=== PATIENT | male | born 2000 ===

== ENCOUNTER 2021-11-29 16:17 | Inpatient (IN) | payer MEDICAID, SELFPAY ==
[2021-11-29 16:17] VITALS: BP 111/75; PULSE 96; RESP 17; TEMP 37.1; O2SAT 97
[2021-11-29 16:23] VITALS: BMI 23.6
[2021-11-29] MEDS: benzocaine 20% 7 gm 1 APPLIC MUCOUS MEM (18:35)
[2021-11-29] MEDS: acetaminophen 325 mg Tablet 650 MG PO (18:35)
[2021-11-29 20:33] VITALS: BP 120/69; PULSE 67; RESP 20; TEMP 36.8; O2SAT 99
[2021-11-30 06:00] VITALS: BP 127/78; PULSE 81; RESP 16; TEMP 37; O2SAT 99
[2021-11-30] MEDS: benzocaine 20% 7 gm 1 APPLIC MUCOUS MEM ×3 (07:32→15:01)
--- NOTE | 2021-11-30 10:38 | W.PM.NPUH&PS ---
Providers/Chief Complaint Admitting Physician: Juanjose Elizabeth MD [facility] NPU History of Present Illness Philip Noble is a 21 year old male who was admitted to an outside emergency department with the following report: The patient is a 21-year-old male who presents to the Emergency Department today due to suicidal ideation.? States that has been going on for the last few days.? States that he would overdose on heroin.? He uses heroin intermittently.? He has never tried to overdose before.? He has been using increasingly high doses of drugs.? He was in the emergency room last evening for methamphetamine use.? Denies any other symptoms.? Otherwise he is normal state of health. Patient is a 21-year-old male who presents to the emergency department for virtual evaluation.? Patient reports a chief complaint of I am having suicidal thoughts .? Patient reports suicidal ideation with a plan, patient reports his plan is overdose on heroin .? Patient declines any current depression, anxiety, manic or psychosis symptoms and states I want to detox. ? Patient was recently discharged from the inpatient behavioral health at [facility] from November 18 to November 23.? Patient reports methamphetamine and heroin use, patient disclosed ethanol use to the medical team but declined alcohol use to this account underwriter.? Patient reports he is currently homeless and does not have access to weapons, he does state that he feels he cannot be safe outside the hospital.? Patient reports he has no social support.? Patient states he receives outpatient services from [facility], however, patient then declined that he receives services from [facility].? Patient requested to be admitted to inpatient behavioral health for detox and suicidal thoughts. ? Patient presents alert and oriented x4, calm, cooperative and answers questions appropriately. She was recently admitted to a different hospital for about 5 days. He said that he did okay for about 1 week and then stopped taking the medications and started using heroin again. He has been homeless for about 3 months. He has not had a job for quite some time. He said that they did not talk to him at the previous hospital about rehab. He said it has been sometime that he has been to rehab previously. He would like to go again. He wants to get off of the heroin and methamphetamine. He says that he is tired of this lifestyle and strongly considered suicide. He said he would rather commit suicide than continue with this homeless drug abusing lifestyle. He has 2 somewhat recent prescriptions for Suboxone. He says he receives that at [facility]. He says that he takes Celexa 40 mg and that has been helpful for his depression and anxiety. He says that his anxiety started when he was a teenager. He feels that it is more prominent than his depression. He says that his family became homeless when he was 15 years old. He said that his father came home from detention and started using methamphetamine in the house. The landlord kicked them out. He said that he was in state custody up until the time he was of age. He said that he has had Medicaid ever since that time. He has been using drugs fairly consistently since that time. He has not really had any significant employment during that time. He says that that is because of his addictions. Meds NPU Allergies Allergy/AdvReac Type Severity Reaction Status Date / Time No Known Allergies Allergy Verified 11/29/21 17:35 Mental Status Exam MSE Comments: This is a 21-year-old single male who appears approximately his stated age and is in no acute distress. He is pleasant and cooperative with the evaluation. He was in bed at 10:30 AM but was not asleep and went to the day room readily. He is fairly well groomed and in hospital scrubs. psychomotor activity is normal. Speech is at a regular rate and rhythm, normal volume, good articulation, not pressured. Alert, oriented X3 Attention and concentration appears to be normal. Memory is intact Mood is depressed. Affect is mildly dysphoric. Thought process is logical and goal-directed. Thought content: Denies auditory and visual hallucinations. No delusions or paranoia are noted. No current suicidal ideation. He denies homicidal ideation. Fund of knowledge is average. Insight and judgment appear to be poor. Impulse control is poor. Vitals/I&O/Wt Last Vital Signs Temp 98.6 F 11/30/21 06:00 Pulse 81 11/30/21 06:00 Resp 16 11/30/21 06:00 BP 127/78 11/30/21 06:00 Pulse Ox 99 11/30/21 06:00 Weight last 48 hrs Weight 74.843 kg A&P Assessment and plan (1) Heroin abuse: Status: Acute (2) Methamphetamine abuse: Status: Acute (3) Cannabis abuse: Status: Acute (4) Suicidal ideation: Status: Acute (5) Anxiety: Status: Acute (6) Major depressive disorder: Status: Acute Plan This is a 21-year-old male with long-term polysubstance abuse who says he is tired of that lifestyle and would rather kill himself. He is wanting rehab treatment and wants to get off of the drugs. Plan: 1. Continue current medication. Celexa 40 mg and Suboxone 4-1 mg 3 times a day. 2. Continue every 15 minute checks for safety. 3. Encourage individual, group and milieu therapies. 4. Encourage sober living treatment after discharge at the highest level of care to which he is willing to commit. 5. We will monitor for safety for himself in the community prior to discharge. Involuntary Hold Information 96 Hour Hold: 96 Hour Involuntary Admission: No Attestations NPU Medical Necessity Statement*: Inpatient hospitalization is medically necessary and the clinically appropriate intervention at this time. We will initiate medications and make changes as indicated. He will be in the hospital for over 2 midnights. Likely length of stay 4-6 days Coding Level of Care Code Acute Bookkeeper Receptionist for Andrés Stanleyd Diagnoses Heroin abuse F11.10 Methamphetamine abuse F15.10 Cannabis abuse F12.10 Suicidal ideation R45.851 Anxiety F41.9 Major depressive disorder F32.9
[2021-11-30] MEDS: citalopram 20 mg Tablet 40 MG PO (11:52)
[2021-11-30 14:00] VITALS: BP 132/79; PULSE 81; RESP 16; TEMP 37.1; O2SAT 99
--- NOTE | 2021-11-30 14:27 | PC.SOCIAL ---
Patient did not attend group.
[2021-11-30] MEDS: buprenorphine-naloxone 4-1 mg Film 1 EACH SUBLINGUAL ×2 (14:29→20:30)
--- NOTE | 2021-11-30 15:02 | PC.NURSE ---
Patient request for oragel due to tongue pain.
[2021-11-30] MEDS: acetaminophen 325 mg Tablet 650 MG PO (16:14)
--- NOTE | 2021-11-30 16:15 | PC.NURSE ---
Patient has c/o right tongue pain. Given tylenol 650 mg po for this.
[2021-11-30 21:20] VITALS: BP 105/67; PULSE 64; RESP 17; TEMP 36.7; O2SAT 98
[2021-12-01 06:00] VITALS: BP 126/77; PULSE 64; RESP 19; TEMP 36.4; O2SAT 96
[2021-12-01] MEDS: buprenorphine-naloxone 4-1 mg Film 1 EACH SUBLINGUAL ×3 (07:44→21:31)
[2021-12-01] MEDS: citalopram 20 mg Tablet 40 MG PO (07:44)
--- NOTE | 2021-12-01 10:34 | W.PM.NPUPNS ---
Subjective NPU Subjective: He said that he is doing relatively well. He was in bed at 10 AM. He has not been doing much besides eating and sleeping. Denies suicidal ideation but the would change if released, homeless and facing his addiciton and legal issues. Still He continues to feel that he is needing rehabilitation. child and family services worker is working on finding a residential treatment program for him. Mental Status Exam MSE Comments: This is a 21-year-old single male who appears approximately his stated age and is in no acute distress. He is pleasant and cooperative with the evaluation. He was in bed at 2 PM but not asleep. He is fairly well groomed and in hospital scrubs. psychomotor activity is normal. Speech is at a regular rate and rhythm, normal volume, good articulation, not pressured. Alert, oriented X3 Attention and concentration appears to be normal. Memory is intact Mood is depressed. Affect is mildly dysphoric. Thought process is logical and goal-directed. Thought content: Denies auditory and visual hallucinations. No delusions or paranoia are noted. No current suicidal ideation. He denies homicidal ideation. Fund of knowledge is average. Insight and judgment appear to be poor. Impulse control is poor. Cognition: Patient Appearance: Disheveled/Poor Hygiene Level of Consciousness: Appropriate Patient Orientation (long list): Person, Place, Time, Name, Age and Birthday Comprehension Ability: No Impairment Hallucination Type: None Delusion Description: Not Present Thought Process: Appropriate Affect: Affect Description: Calm, Depressed and Guarded Behavior: Patient Behavior: Appropriate Speech Pattern: Appropriate Vitals/I&O/Wt Last Vital Signs Temp 97.9 F 12/10/21 13:20 Pulse 72 12/10/21 13:20 Resp 19 H 12/10/21 13:20 BP 123/72 12/10/21 13:20 Pulse Ox 96 12/10/21 13:20 Data NPU : 12/07/21 08:40 12/07/21 08:40 A&P Assessment and plan (1) Major depressive disorder: Status: Acute (2) Anxiety: Status: Acute (3) Suicidal ideation: Status: Resolved (4) Cannabis abuse: Status: Acute (5) Methamphetamine abuse: Status: Acute (6) Heroin abuse: Status: Acute Plan This is a 21-year-old male with long-term polysubstance abuse who says he is tired of that lifestyle and would rather kill himself. He is wanting rehab treatment and wants to get off of the drugs. Plan: 1. Continue current medication. Celexa 40 mg and Suboxone 4-1 mg 3 times a day. 2. Continue every 15 minute checks for safety. 3. Encourage individual, group and milieu therapies. 4. Encourage sober living treatment after discharge at the highest level of care to which he is willing to commit. 5. We will monitor for safety for himself in the community prior to discharge. Involuntary Hold Information 96 Hour Hold: 96 Hour Involuntary Admission: No Attestations NPU Medical Necessity Statement*: Inpatient hospitalization is medically necessary and the clinically appropriate intervention at this time. We will initiate medications and make changes as indicated. Coding Level of Care Code Acute Animal Laboratory Technician for Andrés Schuster Diagnoses Major depressive disorder F32.9 Anxiety F41.9 Suicidal ideation R45.851 Cannabis abuse F12.10 Methamphetamine abuse F15.10 Heroin abuse F11.10
[2021-12-01] MEDS: diphenhydrAMINE 50 mg/mL SDV 1mL IM (12:06)
--- NOTE | 2021-12-01 12:08 | PC.NURSE ---
pt c/o itchy rash on LT hand, pt applied lotion and IM benadryl to relieve itching, pt instructed to stop itching hands, pt verb understanding and went to lay in bed to relax
[2021-12-01 14:00] VITALS: BP 120/70; PULSE 53; RESP 16; TEMP 36.3; O2SAT 96
[2021-12-01 20:26] VITALS: BP 126/81; PULSE 83; RESP 17; TEMP 36.4; O2SAT 94
[2021-12-02 06:00] VITALS: BP 122/79; PULSE 75; RESP 18; TEMP 36.9; O2SAT 96
[2021-12-02] MEDS: buprenorphine-naloxone 4-1 mg Film 1 EACH SUBLINGUAL ×3 (08:49→20:50)
[2021-12-02] MEDS: citalopram 20 mg Tablet 40 MG PO (08:49)
[2021-12-02 14:00] VITALS: BP 127/75; PULSE 67; RESP 20; TEMP 36.7; O2SAT 97
--- NOTE | 2021-12-02 15:14 | W.PM.NPUPNS ---
Subjective NPU Subjective: He said that he is doing relatively well. He was in bed at 3 PM. He continues to feel that he is needing rehabilitation. Mental Status Exam MSE Comments: This is a 21-year-old single male who appears approximately his stated age and is in no acute distress. He is pleasant and cooperative with the evaluation. He was in bed at 3 PM but not asleep. He is fairly well groomed and in hospital scrubs. psychomotor activity is normal. Speech is at a regular rate and rhythm, normal volume, good articulation, not pressured. Alert, oriented X3 Attention and concentration appears to be normal. Memory is intact Mood is depressed. Affect is mildly dysphoric. Thought process is logical and goal-directed. Thought content: Denies auditory and visual hallucinations. No delusions or paranoia are noted. No current suicidal ideation. He denies homicidal ideation. Fund of knowledge is average. Insight and judgment appear to be poor. Impulse control is poor. Cognition: Patient Appearance: Appropriate Patient Orientation (long list): Person, Place, Name and Age Comprehension Ability: No Impairment Hallucination Type: None Delusion Description: Not Present Thought Process: Appropriate Affect: Affect Description: Appropriate Behavior: Patient Behavior: Appropriate Speech Pattern: Appropriate Vitals/I&O/Wt Last Vital Signs Temp 98.1 F 12/02/21 14:00 Pulse 67 12/02/21 14:00 Resp 20 H 12/02/21 14:00 BP 127/75 12/02/21 14:00 Pulse Ox 97 12/02/21 14:00 A&P Assessment and plan (1) Heroin abuse: Status: Acute (2) Methamphetamine abuse: Status: Acute (3) Cannabis abuse: Status: Acute (4) Suicidal ideation: Status: Acute (5) Anxiety: Status: Acute (6) Major depressive disorder: Status: Acute Plan This is a 21-year-old male with long-term polysubstance abuse who says he is tired of that lifestyle and would rather kill himself. He is wanting rehab treatment and wants to get off of the drugs. Plan: 1. Continue current medication. Celexa 40 mg and Suboxone 4-1 mg 3 times a day. 2. Continue every 15 minute checks for safety. 3. Encourage individual, group and milieu therapies. 4. Encourage sober living treatment after discharge at the highest level of care to which he is willing to commit. 5. We will monitor for safety for himself in the community prior to discharge. Involuntary Hold Information 96 Hour Hold: 96 Hour Involuntary Admission: No Attestations NPU Medical Necessity Statement*: Inpatient hospitalization is medically necessary and the clinically appropriate intervention at this time. We will initiate medications and make changes as indicated. Coding Level of Care Code Acute Tennis Racket Repairer for [facility] Fwd Diagnoses Heroin abuse F11.10 Methamphetamine abuse F15.10 Cannabis abuse F12.10 Suicidal ideation R45.851 Anxiety F41.9 Major depressive disorder F32.9
[2021-12-02] MEDS: diphenhydrAMINE 50 mg/mL SDV 1mL IM (16:01)
[2021-12-02] MEDS: nystatin 100,000 unit/mL UDC 5 mL 500000 UNIT PO ×2 (17:21→20:51)
[2021-12-02 21:13] VITALS: BP 119/17; PULSE 82; RESP 16; TEMP 36.6; O2SAT 96
[2021-12-03 06:00] VITALS: BP 114/73; PULSE 73; RESP 17; TEMP 36.9; O2SAT 96
[2021-12-03] MEDS: citalopram 20 mg Tablet 40 MG PO (08:36)
[2021-12-03] MEDS: nystatin 100,000 unit/mL UDC 5 mL 500000 UNIT PO ×3 (08:36→20:13)
[2021-12-03] MEDS: OLANZapine 5 mg ODT PO (08:36)
[2021-12-03] MEDS: buprenorphine-naloxone 4-1 mg Film 1 EACH SUBLINGUAL ×3 (08:36→20:13)
--- NOTE | 2021-12-03 11:16 | PC.NURSE ---
0836 Pt experiencing anxiety and tearful administered 5mg zyprexa zydis.
--- NOTE | 2021-12-03 13:53 | P.NPUPN_ITS ---
Subjective NPU Subjective: He said that he is doing relatively well. He was in bed at 2 PM. He continues to feel that he is needing rehabilitation. opinion polls survey worker is working on finding a residential treatment program for him. Mental Status Exam MSE Comments: This is a 21-year-old single male who appears approximately his stated age and is in no acute distress. He is pleasant and cooperative with the evaluation. He was in bed at 2 PM but not asleep. He is fairly well groomed and in hospital scrubs. psychomotor activity is normal. Speech is at a regular rate and rhythm, normal volume, good articulation, not pressured. Alert, oriented X3 Attention and concentration appears to be normal. Memory is intact Mood is depressed. Affect is mildly dysphoric. Thought process is logical and goal-directed. Thought content: Denies auditory and visual hallucinations. No delusions or paranoia are noted. No current suicidal ideation. He denies homicidal ideation. Fund of knowledge is average. Insight and judgment appear to be poor. Impulse control is poor. Cognition: Patient Appearance: Appropriate Patient Orientation (long list): Person, Place, Time, Name, Month and Year Comprehension Ability: No Impairment Hallucination Type: None Delusion Description: Not Present Thought Process: Appropriate Affect: Affect Description: Anxious Behavior: Patient Behavior: Appropriate Speech Pattern: Appropriate and Clear Vitals/I&O/Wt Last Vital Signs Temp 98.5 F 12/03/21 06:00 Pulse 73 12/03/21 06:00 Resp 17 12/03/21 06:00 BP 114/73 12/03/21 06:00 Pulse Ox 96 12/03/21 06:00 A&P Assessment and plan (1) Heroin abuse: Status: Acute (2) Methamphetamine abuse: Status: Acute (3) Cannabis abuse: Status: Acute (4) Suicidal ideation: Status: Acute (5) Anxiety: Status: Acute (6) Major depressive disorder: Status: Acute Plan This is a 21-year-old male with long-term polysubstance abuse who says he is tired of that lifestyle and would rather kill himself. He is wanting rehab treatment and wants to get off of the drugs. Plan: 1. Continue current medication. Celexa 40 mg and Suboxone 4-1 mg 3 times a day. 2. Continue every 15 minute checks for safety. 3. Encourage individual, group and milieu therapies. 4. Encourage sober living treatment after discharge at the highest level of care to which he is willing to commit. 5. We will monitor for safety for himself in the community prior to discharge. Involuntary Hold Information 96 Hour Hold: 96 Hour Involuntary Admission: No Attestations NPU Medical Necessity Statement*: Inpatient hospitalization is medically necessary and the clinically appropriate intervention at this time. We will initiate medications and make changes as indicated. Coding Level of Care Code Acute Terrazzo Worker Helper for Andrés Fwd Diagnoses Heroin abuse F11.10 Methamphetamine abuse F15.10 Cannabis abuse F12.10 Suicidal ideation R45.851 Anxiety F41.9 Major depressive disorder F32.9
[2021-12-03 14:00] VITALS: BP 150/82; PULSE 87; RESP 18; TEMP 36.4; O2SAT 97
[2021-12-03 21:27] VITALS: BP 112/68; PULSE 78; RESP 16; O2SAT 96
[2021-12-03 21:44] LABS: Rapid Strep A Test Negative (Negative)
--- NOTE | 2021-12-03 22:30 | PC.NURSE ---
PT STAYS MOSTLY TO SELF. DOES ENDORSE CONTINUED SI BUT DENIES ANY PLAN OR INTENT BUT HAS INTRUSIVE THOUGHTS. CONTRACTS FOR SAFETY WITH STAFF. HAS APPROPRIATE INTERACTION WITH OTHERS WHEN APPROACHED. CONTINUES TO ENDORSE HAVING A SORE THROAT AND STATES THAT THIS IS NOT HELPING HIM FEEL BETTER. NOTIFIED OF CONTINUED WHITENESS NOTED TO THROAT AND THAT PT HAS DEVELOPED A COUGH. NEW ORDER FOR STREP TEST. TEST IS NEGATIVE. STAFF CONTINUING TO MONITOR PT.
[2021-12-04 06:00] VITALS: BP 98/57; PULSE 76; RESP 15; O2SAT 95
[2021-12-04] MEDS: citalopram 20 mg Tablet 40 MG PO (08:21)
[2021-12-04] MEDS: buprenorphine-naloxone 4-1 mg Film 1 EACH SUBLINGUAL ×3 (08:21→20:16)
[2021-12-04] MEDS: acetaminophen 325 mg Tablet 650 MG PO ×2 (08:21→20:16)
[2021-12-04] MEDS: nystatin 100,000 unit/mL UDC 5 mL 500000 UNIT PO ×2 (08:21→14:26)
[2021-12-04 09:41] LABS: Basophils # 0.1 10^3/uL (0.0-0.1); Basophils % 0.4 %; Eosinophils # 0.9 10^3/uL (0.0-0.8); Eosinophils % 6.5 %; Hematocrit 45.5 % (42.0-52.0); Hemoglobin 15.5 g/dL (11.7-16.6); Lymphocytes # 2.3 10^3/uL (0.8-4.8); Lymphocytes % 16.5 %; Mean Corpuscular HGB Conc 34.1 g/dL (30.0-36.0); Mean Corpuscular Hemoglobin 29.5 pg (28.0-34.0); Mean Corpuscular Volume 86.5 fl (80-94); Mean Platelet Volume 9.9 fL (7.4-10.4); Monocytes % 14.7 %; Neutrophils # 8.38 10^3/uL (1.8-7.7); Neutrophils % 61.6 %; Nucleated Red Blood Cells % 0 %; Platelet Count 302 10^3/cmm (130-400); Red Blood Count 5.26 10^6/uL (4.1-5.3); Red Cell Distribution Width 12.6 % (12.1-15.1); White Blood Count 13.6 10^3/uL (4.0-10.0)
[2021-12-04 09:55] LABS: Anion Gap 15.3 (5-19); Blood Urea Nitrogen 16 mg/dL (6-20); C Reactive Protein 33.4 mg/L (0.0-4.9); Calcium 9.4 mg/dL (8.5-10.5); Carbon Dioxide 25 mmol/L (22-29); Chloride 97 mmol/L (98-107); Glucose 102 mg/dL (65-115); Osmolality Calculated 277 mOsm/kg (285-295); Potassium 4.3 mmol/L (3.5-5.1); Sodium 133 mmol/L (136-145)
[2021-12-04 10:04] VITALS: BP 109/59; PULSE 100; RESP 18; TEMP 36.9; O2SAT 98
--- NOTE | 2021-12-04 10:05 | P.NPUPN_ITS ---
Subjective NPU Subjective: He is still hopeful about the [facility] treatment program. He called them again this morning and they did not answer. He will try this afternoon. He continues to have some depression and some episodic suicidal ideation. He has a sore throat but no fever. White count is elevated. Will have hospitalist come and see him for that. Mental Status Exam MSE Comments: This is a 21-year-old single male who appears approximately his stated age and is in no acute distress. He is pleasant and cooperative with the evaluation. He was in bed at 10 AM but not asleep. He is fairly well groomed and in hospital scrubs. psychomotor activity is normal. Speech is at a regular rate and rhythm, normal volume, good articulation, not pressured. Alert, oriented X3 Attention and concentration appears to be normal. Memory is intact Mood is depressed. Affect is mildly dysphoric. Thought process is logical and goal-directed. Thought content: Denies auditory and visual hallucinations. No delusions or paranoia are noted. Episodic suicidal ideation. He denies homicidal ideation. Fund of knowledge is average. Insight and judgment appear to be poor. Impulse control is poor. Cognition: Patient Appearance: Disheveled/Poor Hygiene Patient Orientation (long list): Person, Place, Time, Name, Birthday, Month and Year Comprehension Ability: No Impairment Hallucination Type: None Delusion Description: Not Present Thought Process: Appropriate Affect: Affect Description: Roosevelt Behavior: Patient Behavior: Somatic and Withdrawn Speech Pattern: Appropriate and Clear Vitals/I&O/Wt Last Vital Signs Temp 97.6 F 12/03/21 14:00 Pulse 76 12/04/21 06:00 Resp 15 12/04/21 06:00 BP 98/57 12/04/21 06:00 Pulse Ox 95 12/04/21 06:00 Data NPU : 12/04/21 09:27 12/04/21 09:27 A&P Assessment and plan (1) Heroin abuse: Status: Acute (2) Methamphetamine abuse: Status: Acute (3) Cannabis abuse: Status: Acute (4) Suicidal ideation: Status: Acute (5) Anxiety: Status: Acute (6) Major depressive disorder: Status: Acute Plan This is a 21-year-old male with long-term polysubstance abuse who says he is tired of that lifestyle and would rather kill himself. He is wanting rehab treatment and wants to get off of the drugs. Plan: 1. Continue current medication. Celexa 40 mg and Suboxone 4-1 mg 3 times a day. 2. Continue every 15 minute checks for safety. 3. Encourage individual, group and milieu therapies. 4. Encourage sober living treatment after discharge at the highest level of care to which he is willing to commit. 5. We will monitor for safety for himself in the community prior to discharge. Involuntary Hold Information 96 Hour Hold: 96 Hour Involuntary Admission: No Attestations NPU Medical Necessity Statement*: Inpatient hospitalization is medically necessary and the clinically appropriate intervention at this time. We will initiate medications and make changes as indicated. Coding Level of Care Code Acute Combine Mechanic for Andrés Schuster Diagnoses Heroin abuse F11.10 Methamphetamine abuse F15.10 Cannabis abuse F12.10 Suicidal ideation R45.851 Anxiety F41.9 Major depressive disorder F32.9
[2021-12-04 14:00] VITALS: BP 133/70; PULSE 60; RESP 18; TEMP 36.6; O2SAT 98
--- NOTE | 2021-12-04 14:52 | XRR_ITS ---
PROCEDURE INFORMATION: Exam: XR Chest Exam date and time: 12/04/2021 5:57 PM Age: 21 years old Clinical indication: Abnormal findings; Abnormal diagnostic tests; Abnormal ekg; Additional info: Leukocytosis TECHNIQUE: Imaging protocol: XR of the chest. Views: 1 view. COMPARISON: No relevant prior studies available. FINDINGS: Lungs: Unremarkable. No consolidation. Pleural spaces: Unremarkable. No pleural effusion. No pneumothorax. Heart/Mediastinum: Unremarkable. No cardiomegaly. Bones/joints: Unremarkable. XR/XR chest 1V portable [id number] IMPRESSION: No acute findings.
--- NOTE | 2021-12-04 14:55 | P.CONIM_ITS ---
Providers/Reason For Consult Consulting Physician/Specialty*: Hospitalist Reason for Consult*: Rash, runny nose, sore throat, leukoctosis Requesting Physician: Psychiatry Attending Physician: Juanjose Elizabeth MD History of Present Illness History of Present Illness Pleasant 21-year-old polysubstance use disorder, IVDU, untreated hepatitis C, smoking addiction, homelessness, depression and suicidal ideation and treated on neuropsychiatric unit has developed a rash, sore throat, runny nose, with finding of leukocytosis with eosinophilia, monocytosis, neutrophilia, he is afebrile, perhaps some dry cough. Denies shortness of breath, phlegm production. Denies headache, nausea vomiting or diarrhea. Rash is maculopapular, pruritic, on medial right forearm, elbows, knees. He does not remember having this rash before coming to the hospital. He does not take any medications at home. He is not aware of having any medication or other allergies. Is not aware of any recent tick bites. Rapid strep negative. Review of Systems Const: Denies: fever(s), chills, body aches or malaise Eyes: Denies: change in vision, eye discomfort or eye redness ENMT: Reports: throat pain and nasal discharge; Denies: oral sores or ear or mastoid pain Card: Denies: chest pain, edema, pre-syncope or dyspnea on exertion Resp: Reports: non-productive cough (rare, mild); Denies: dyspnea, productive cough, change in phlegm color or hemoptysis GI: Denies: abdominal pain, nausea, vomiting, diarrhea, constipation, hematochezia or melena : Denies: flank pain, difficulty urinating, urinary frequency or hematuria Musc: Denies: back pain, joint swelling or joint redness Skin/Breast: Reports: rash and pruritus; Denies: new lesions Neuro: Denies: headache(s), numbness in extremities, weakness in extremities, dizziness, confusion or seizure-like activity Endo: Denies: polyuria or polydipsia Zach/Lymph: Denies: easy bleeding or tender lymph nodes All/Imm: Denies: urticaria or tongue swelling Medications/Allergies Home Medications Medication Instructions Recorded Confirmed Last Taken Type No Known Home Medications 11/30/21 11/30/21 Unknown History Allergies Allergy/AdvReac Type Severity Reaction Status Date / Time No Known Allergies Allergy Verified 11/29/21 17:35 Current Medications Generic Name Dose Route Start Last Admin Trade Name Freq PRN Reason Stop Dose Admin Acetaminophen 650 mg 11/29/21 16:17 12/04/21 08:21 Acetaminophen 325 Mg Tablet PO 650 mg Q4H PRN Administration MILD PAIN Benzocaine 1 applic 11/29/21 16:24 11/30/21 15:01 Benzocaine 20% 7 Gm MUCOUS MEM 1 applic PRN PRN Administration PAIN Buprenorphine/Naloxone 1 each 11/30/21 15:00 12/04/21 14:26 Buprenorphine-Naloxone 4-1 Mg Film SUBLINGUAL 1 each TID MAYLIN Administration Citalopram Hydrobromide 40 mg 11/30/21 10:45 12/04/21 08:21 Citalopram 20 Mg Tablet PO 40 mg DAILY MAYLIN Administration Diphenhydramine HCl 50 mg 11/29/21 16:17 12/01/21 12:06 Diphenhydramine 50 Mg/Ml Sdv 1ml IM 50 mg ONCE PRN Administration Severe Extrapyramidal Symptoms Diphenhydramine HCl 50 mg 11/29/21 16:17 12/02/21 16:01 Diphenhydramine 50 Mg/Ml Sdv 1ml IM 50 mg Q4H PRN Administration Severe Aggression Nystatin 500,000 unit 12/02/21 17:00 12/04/21 14:26 Nystatin 100,000 Unit/Ml Udc 5 Ml PO 12/07/21 23:59 500,000 unit QID MAYLIN Administration Olanzapine 5 mg 11/29/21 16:17 12/03/21 08:36 Olanzapine 5 Mg Odt PO 5 mg Q4H PRN Administration Agitation/Psychosis PFSH Acute PFSH: Medical History HCV (hepatitis C virus) Homelessness IVDU (intravenous drug user) Polysubstance (excluding opioids) dependence Smoking addiction Surgical History (Updated 12/04/21 @ 15:19 by Kamar Jo MD) No significant past surgical history Family History (Updated 12/04/21 @ 15:20 by Kamar Jo MD) Other No significant family history Social History (Updated 12/04/21 @ 15:21 by Kamar Jo MD) Smoking and tobacco status: current every day smoker Alcohol intake: never Substance/Drug Use: current Substance/Drug use type: Heroin, IV Drugs and Methamphetamine Lives independently: Yes Housing: Homeless Marital status: Single Vitals/I&O/Wt Last Vital Signs Temp 98.5 F 12/04/21 10:04 Pulse 100 12/04/21 10:04 Resp 18 12/04/21 10:04 BP 109/59 12/04/21 10:04 Pulse Ox 98 12/04/21 10:04 Physical Exam Const: COMMON NORMALS: alert GENERAL APPEARANCE: cooperative ORIENTATION/CONSCIOUSNESS: Yes awake HENMT: COMMON NORMALS: normocephalic, EAC's normal, Normal external nose present and moist oral mucous membranes HEAD & SCALP: normocephalic NOSE: Normal external nose present EXTERNAL AUDITORY CANAL: EAC's normal Neck/C-Spine: COMMON NORMALS: no meningeal signs Chest: CHEST: Yes Symmetrical chest wall rise Resp: COMMON NORMALS: clear to auscultation bilaterally AUSCULTATION: clear to auscultation bilaterally Cardio: COMMON NORMALS: regular rate, regular rhythm and No murmurs present (Cardio) RATE: regular rate RHYTHM: regular rhythm GI: COMMON NORMALS: Normal to inspection, nondistended, normoactive bowel sounds present, Soft to palpation and non-tender PALPATION: Yes Soft to palpation Extremity: COMMON NORMALS: no pedal edema Neuro: COMMON NORMALS: moves all extremities SENSORIUM/ORIENTATION: Yes alert MENINGEAL SIGNS: Yes no meningeal signs Psych: COMMON NORMALS: mental status grossly normal Skin: COMMON NORMALS: no wounds RASHES: rashes noted (maculopapular L med forearm, elbows, knees, no vesicles, weeping) Data : 12/04/21 09:27 12/04/21 09:27 A&P Assessment and plan (1) Maculopapular rash: Maculopapular rash, with warm, elbows, knees. Pruritic. Does not remember it before hospitalization. No vesicles. No rash on face/head/chest/back/abdomen. With eosinophilia. Possible drug reaction with eosinophilia. Stop nystatin. Has Benadryl, Atarax as needed for symptoms. Check Monospot. Rapid strep negative. Distribution and rash not suggestive of RMSF, but will check tick panel. Status: Acute (2) Eosinophilia: As above. Homeless. Also check ova and parasites in stool. Status: Acute (3) Leukocytosis: As above. Suspect reaction as above. Some mild rare intermittent dry cough, possibly smokers but additionally assess with chest x-ray. With history of IVDU, assess blood culture. Status: Acute (4) Pharyngitis: Rapid strep negative. Some enlargement of tonsils bilaterally. No exudates. No significant erythema. Check Monospot. Status: Acute (5) IVDU (intravenous drug user): Blood culture. Known history of hepatitis C. As discussed with him we will check paraspinal, HIV. Check GC panel. Status: Acute (6) Polysubstance (excluding opioids) dependence: As per psychiatry. Status: Acute (7) Smoking addiction: Encourage cessation. Nicotine replacement Status: Acute (8) Homelessness: Case management on the case. Needs also PCP. Status: Acute (9) HCV (hepatitis C virus): Discussed with him will need to seek treatment once condition stable to avoid risk of progression to cirrhosis, liver cancer. Status: Acute (10) Suicidal ideation: Per psychiatry. Status: Acute (11) Major depressive disorder: As per psychiatry. Status: Acute Consult Attestations Medical Necessity Statement: Continue admission for assessment management of depression, suicidal ideation. Assessment of rash, leukocytosis. Coding Level of Care Code Acute Verification Manager for [facility] Fwd Exam Comprehensive Diagnoses Maculopapular rash R21 Eosinophilia D72.10 Leukocytosis D72.829 Pharyngitis J02.9 IVDU (intravenous drug user) F19.90 Polysubstance (excluding opioids) dependence F19.20 Smoking addiction F17.200 Homelessness Z59.00 HCV (hepatitis C virus) B19.20 Suicidal ideation R45.851 Major depressive disorder F32.9
[2021-12-04 15:15] LABS: Monoscreen Negative (Negative)
[2021-12-04 15:49] LABS: Hepatitis A Antibody IgM Non-Reactive (Nonreactive); Hepatitis B Core IgM Non-Reactive (Nonreactive); Hepatitis B Surface Antigen Non-Reactive (Nonreactive); Hepatitis C Virus Antibody Reactive (Nonreactive)
[2021-12-04 15:54] LABS: HIV 1 & 2 Antibody Non-Reactive (Non-Reactiv); HIV 1 & 2 Antigen Non-Reactive (Non-Reactiv)
[2021-12-04] MEDS: haloperidol 5 mg Tablet PO (16:17)
[2021-12-04] MEDS: ondansetron 4 MG Tablet PO (20:16)
[2021-12-04 22:00] VITALS: BP 142/66; PULSE 82; RESP 16; TEMP 37.7; O2SAT 99
[2021-12-05 06:00] VITALS: BP 128/64; PULSE 80; RESP 18; TEMP 37.6; O2SAT 92; BMI 22.8
[2021-12-05 07:35] LABS: SARS Covid-2 Antigen Negative (Negative)
--- NOTE | 2021-12-05 08:00 | P.NPUPN_ITS ---
Subjective NPU Subjective: He is still feeling bad physically. He has a sore throat and general malaise. Evaluation thus far has not revealed a cause. We will try some ibuprofen. Still looking for a rehab facility. Mental Status Exam MSE Comments: This is a 21-year-old single male who appears approximately his stated age and is in no acute distress. He is pleasant and cooperative with the evaluation. He is sitting up in bed at 8 AM but. He is fairly well groomed and in hospital scrubs. psychomotor activity is normal. Speech is at a regular rate and rhythm, normal volume, good articulation, not pressured. Alert, oriented X3 Attention and concentration appears to be normal. Memory is intact Mood is depressed. Affect is moderately dysphoric. Thought process is logical and goal-directed. Thought content: Denies auditory and visual hallucinations. No delusions or paranoia are noted. Episodic suicidal ideation. He denies homicidal ideation. Fund of knowledge is average. Insight and judgment appear to be poor. Impulse control is poor. Cognition: Patient Appearance: Disheveled/Poor Hygiene Patient Orientation (long list): Person, Place, Time, Name, Birthday, Month and Year Comprehension Ability: No Impairment Hallucination Type: None Delusion Description: Not Present Thought Process: Appropriate Affect: Affect Description: Calm Behavior: Patient Behavior: Appropriate Speech Pattern: Appropriate Vitals/I&O/Wt Last Vital Signs Temp 99.6 F 12/05/21 06:00 Pulse 80 12/05/21 06:00 Resp 18 12/05/21 06:00 BP 128/64 12/05/21 06:00 Pulse Ox 92 12/05/21 06:00 Weight last 48 hrs Weight 72.121 kg Weight 72.121 kg Data NPU : 12/04/21 09:27 12/04/21 09:27 Micro: Microbiology 12/04/21 15:42 Blood Culture - Preliminary Blood SPECIMEN COLLECTED 12/04/21 15:36 Blood Culture - Preliminary Blood SPECIMEN COLLECTED Microbiology 12/04/21 15:42 Blood Blood Culture - Preliminary SPECIMEN COLLECTED 12/04/21 15:36 Blood Blood Culture - Preliminary SPECIMEN COLLECTED A&P Assessment and plan (1) Heroin abuse: Status: Acute (2) Methamphetamine abuse: Status: Acute (3) Cannabis abuse: Status: Acute (4) Suicidal ideation: Status: Acute (5) Anxiety: Status: Acute (6) Major depressive disorder: Status: Acute Plan This is a 21-year-old male with long-term polysubstance abuse who says he is tired of that lifestyle and would rather kill himself. He is wanting rehab treatment and wants to get off of the drugs. Plan: 1. Continue current medication. Celexa 40 mg and Suboxone 4-1 mg 3 times a day. 2. Continue every 15 minute checks for safety. 3. Encourage individual, group and milieu therapies. 4. Encourage sober living treatment after discharge at the highest level of care to which he is willing to commit. 5. We will monitor for safety for himself in the community prior to discharge. Involuntary Hold Information 96 Hour Hold: 96 Hour Involuntary Admission: No Attestations NPU Medical Necessity Statement*: Inpatient hospitalization is medically necessary and the clinically appropriate intervention at this time. We will initiate medications and make changes as indicated. Coding Level of Care Code Acute Personal Banking Advisor for [facility] Diagnoses Heroin abuse F11.10 Methamphetamine abuse F15.10 Cannabis abuse F12.10 Suicidal ideation R45.851 Anxiety F41.9 Major depressive disorder F32.9
[2021-12-05] MEDS: buprenorphine-naloxone 4-1 mg Film 1 EACH SUBLINGUAL ×3 (09:09→20:57)
[2021-12-05] MEDS: citalopram 20 mg Tablet 40 MG PO (09:09)
[2021-12-05] MEDS: ibuprofen 800 mg tablet PO (09:09)
[2021-12-05 09:24] LABS: Basophils # 0.1 10^3/uL (0.0-0.1); Basophils % 0.4 %; Eosinophils # 0.5 10^3/uL (0.0-0.8); Eosinophils % 3.6 %; Hematocrit 40.4 % (42.0-52.0); Hemoglobin 13.8 g/dL (11.7-16.6); Lymphocytes # 1.7 10^3/uL (0.8-4.8); Lymphocytes % 12.1 %; Mean Corpuscular HGB Conc 34.2 g/dL (30.0-36.0); Mean Corpuscular Hemoglobin 29.8 pg (28.0-34.0); Mean Corpuscular Volume 87.3 fl (80-94); Monocytes # 1.9 10^3/uL (0.2-0.9); Monocytes % 13.5 %; Neutrophils # 9.76 10^3/uL (1.8-7.7); Nucleated Red Blood Cells % 0 %; Platelet Count 287 10^3/cmm (130-400); Red Blood Count 4.63 10^6/uL (4.1-5.3); Red Cell Distribution Width 12.5 % (12.1-15.1); White Blood Count 13.9 10^3/uL (4.0-10.0)
[2021-12-05 09:41] LABS: Alanine Aminotransferase 73 U/L (0-41); Albumin Level 3.3 g/dL (3.5-5.2); Alkaline Phosphatase 71 IU/L (40-130); Anion Gap 13.5 (5-19); Aspartate Amino Transferase 46 U/L (0-40); Blood Urea Nitrogen 14 mg/dL (6-20); Carbon Dioxide 27 mmol/L (22-29); Chloride 96 mmol/L (98-107); Globulin 3.5 g/dL (1.3-4.6); Glucose 107 mg/dL (65-115); Osmolality Calculated 275 mOsm/kg (285-295); Potassium 4.5 mmol/L (3.5-5.1); Sodium 132 mmol/L (136-145); Total Bilirubin 0.2 mg/dL (0.15-1.2); Total Protein 6.8 g/dL (6.6-8.7)
[2021-12-05 13:43] VITALS: BP 113/63; PULSE 64; RESP 17; TEMP 36.8; O2SAT 93
--- NOTE | 2021-12-05 15:28 | PM.PN ---
Subjective Subjective: Having sore throat. Rash is resolving. Vitals/I&O/Wt Last Vital Signs Temp 98.2 F 12/05/21 13:43 Pulse 64 12/05/21 13:43 Resp 17 12/05/21 13:43 BP 113/63 12/05/21 13:43 Pulse Ox 93 12/05/21 13:43 Weight last 48 hrs Weight 72.121 kg Weight 72.121 kg Physical Exam Const: COMMON NORMALS: alert GENERAL APPEARANCE: cooperative ORIENTATION/CONSCIOUSNESS: Yes awake HENMT: COMMON NORMALS: normocephalic, EAC's normal, Normal external nose present and moist oral mucous membranes HEAD & SCALP: normocephalic NOSE: Normal external nose present EXTERNAL AUDITORY CANAL: EAC's normal OTHER: Enlarged tonsils bilaterally without change. No purulent exudate, no asymmetrical enlargement or soft palate swelling. Neck/C-Spine: COMMON NORMALS: no meningeal signs Chest: CHEST: Yes Symmetrical chest wall rise Resp: COMMON NORMALS: clear to auscultation bilaterally AUSCULTATION: clear to auscultation bilaterally Cardio: COMMON NORMALS: regular rate, regular rhythm and No murmurs present (Cardio) RATE: regular rate RHYTHM: regular rhythm GI: COMMON NORMALS: Normal to inspection, nondistended, normoactive bowel sounds present, Soft to palpation and non-tender PALPATION: Yes Soft to palpation Extremity: COMMON NORMALS: no pedal edema Neuro: COMMON NORMALS: moves all extremities SENSORIUM/ORIENTATION: Yes alert MENINGEAL SIGNS: Yes no meningeal signs Psych: COMMON NORMALS: mental status grossly normal Skin: COMMON NORMALS: no wounds RASHES: rashes noted (maculopapular L med forearm, elbows, knees, no vesicles, weeping) Data : 12/05/21 09:05 12/05/21 09:05 Micro: Microbiology 12/04/21 14:50 Chlamydia trachomatis (VIRI) - Final Urine Random Neisseria gonorrhoeae (VIRI) - Final 12/03/21 21:23 Group A Streptococcus Rapid Screen - Preliminary Throat 12/04/21 15:42 Blood Culture - Preliminary Blood SPECIMEN COLLECTED 12/04/21 15:36 Blood Culture - Preliminary Blood SPECIMEN COLLECTED A&P Assessment and plan (1) Pharyngitis: Rapid strep negative. Given he has persistent pharyngitis, some leukocytosis noted, low-grade temp 99.9. Check throat culture. Discussed with him consideration of antibiotic treatment in case culture positive. Some enlargement of tonsils bilaterally. No exudates. No significant erythema. For now no suggestion of peritonsillar abscess, but if spiking high fever, worsening condition, worsening pain, consider additional assessment. Negative Monospot. Negative GC panel Status: Acute (2) Maculopapular rash: Nearly resolved after nystatin stopped. Eosinophilia appears resolved. Nystatin added to allergy list. Maculopapular rash, with warm, elbows, knees. Pruritic. Does not remember it before hospitalization. No vesicles. No rash on face/head/chest/back/abdomen. With eosinophilia. Possible drug reaction with eosinophilia. Has Benadryl, Atarax as needed for symptoms. Negative Monospot. Rapid strep negative. Distribution and rash not suggestive of RMSF, pending tick panel. Status: Acute (3) Eosinophilia: Resolved. As above. Homeless. Ova and parasites in stool. Status: Acute (4) Leukocytosis: As above. Suspect reaction as above. Some mild rare intermittent dry cough, possibly smokers. Unremarkable chest x-ray. With history of IVDU, assess blood culture. Status: Acute (5) IVDU (intravenous drug user): Blood culture. Known history of hepatitis C. negative hepatitis panel and HIV. Negative GC panel. Status: Acute (6) Polysubstance (excluding opioids) dependence: As per psychiatry. Status: Acute (7) Smoking addiction: Encourage cessation. Nicotine replacement Status: Acute (8) Homelessness: Case management on the case. Needs also PCP. Status: Acute (9) HCV (hepatitis C virus): Discussed with him will need to seek treatment once condition stable to avoid risk of progression to cirrhosis, liver cancer. Status: Acute (10) Suicidal ideation: Per psychiatry. Status: Acute (11) Major depressive disorder: As per psychiatry. Status: Acute Attestations Medical Necessity Statement*: Continue assessment of psychiatric condition, pharyngitis. Coding Level of Care Code Acute Rear Load Truck Driver for [employer] Diagnoses Maculopapular rash R21 Eosinophilia D72.10 Leukocytosis D72.829 Pharyngitis J02.9 IVDU (intravenous drug user) F19.90 Polysubstance (excluding opioids) dependence F19.20 Smoking addiction F17.200 Homelessness Z59.00 HCV (hepatitis C virus) B19.20 Suicidal ideation R45.851 Major depressive disorder F32.9
[2021-12-05 22:00] VITALS: BP 130/71; PULSE 69; RESP 16; TEMP 36.6; O2SAT 97
[2021-12-06 06:00] VITALS: BP 124/81; PULSE 77; RESP 18; TEMP 36.7; O2SAT 94
[2021-12-06] MEDS: citalopram 20 mg Tablet 40 MG PO (08:16)
[2021-12-06] MEDS: buprenorphine-naloxone 4-1 mg Film 1 EACH SUBLINGUAL ×3 (08:17→20:00)
[2021-12-06 08:45] LABS: Basophils # 0.1 10^3/uL (0.0-0.1); Basophils % 0.5 %; Eosinophils # 0.7 10^3/uL (0.0-0.8); Hematocrit 43.6 % (42.0-52.0); Hemoglobin 14.5 g/dL (11.7-16.6); Lymphocytes # 2.7 10^3/uL (0.8-4.8); Lymphocytes % 26.2 %; Mean Corpuscular HGB Conc 33.3 g/dL (30.0-36.0); Mean Corpuscular Hemoglobin 29.1 pg (28.0-34.0); Mean Corpuscular Volume 87.6 fl (80-94); Mean Platelet Volume 9.7 fL (7.4-10.4); Monocytes # 1.5 10^3/uL (0.2-0.9); Monocytes % 14.9 %; Neutrophils # 5.23 10^3/uL (1.8-7.7); Neutrophils % 51.1 %; Nucleated Red Blood Cells % 0 %; Platelet Count 337 10^3/cmm (130-400); Red Blood Count 4.98 10^6/uL (4.1-5.3); Red Cell Distribution Width 12.4 % (12.1-15.1); White Blood Count 10.2 10^3/uL (4.0-10.0)
[2021-12-06 09:01] LABS: Alanine Aminotransferase 81 U/L (0-41); Albumin Level 3.7 g/dL (3.5-5.2); Alkaline Phosphatase 76 IU/L (40-130); Anion Gap 14.4 (5-19); Aspartate Amino Transferase 49 U/L (0-40); Blood Urea Nitrogen 11 mg/dL (6-20); Calcium 9.5 mg/dL (8.5-10.5); Carbon Dioxide 29 mmol/L (22-29); Chloride 96 mmol/L (98-107); Globulin 3.5 g/dL (1.3-4.6); Glucose 154 mg/dL (65-115); Osmolality Calculated 282 mOsm/kg (285-295); Potassium 4.4 mmol/L (3.5-5.1); Sodium 135 mmol/L (136-145); Total Bilirubin 0.3 mg/dL (0.15-1.2); Total Protein 7.2 g/dL (6.6-8.7)
[2021-12-06 14:00] VITALS: BP 114/72; PULSE 70; RESP 17; TEMP 36.3; O2SAT 97
--- NOTE | 2021-12-06 14:13 | W.PM.NPUPNS ---
Subjective NPU Subjective: He is feeling a little better today. We are still working on finding a rehab facility. [facility] at some [facility] but they would not take him because he is on the Suboxone. Mental Status Exam MSE Comments: This is a 21-year-old single male who appears approximately his stated age and is in no acute distress. He is pleasant and cooperative with the evaluation. He is fairly well groomed and in hospital scrubs. psychomotor activity is normal. Speech is at a regular rate and rhythm, normal volume, good articulation, not pressured. Alert, oriented X3 Attention and concentration appears to be normal. Memory is intact Mood is depressed. Affect is moderately dysphoric. Thought process is logical and goal-directed. Thought content: Denies auditory and visual hallucinations. No delusions or paranoia are noted. Episodic suicidal ideation. He denies homicidal ideation. Fund of knowledge is average. Insight and judgment appear to be poor. Impulse control is poor. Cognition: Patient Appearance: Appropriate Patient Orientation (long list): Person, Place, Time, Name, Birthday, Month and Year Comprehension Ability: No Impairment Hallucination Type: None Delusion Description: Not Present Thought Process: Appropriate Affect: Affect Description: Calm Behavior: Patient Behavior: Cooperative Speech Pattern: Clear Vitals/I&O/Wt Last Vital Signs Temp 98.1 F 12/06/21 06:00 Pulse 77 12/06/21 06:00 Resp 18 12/06/21 06:00 BP 124/81 12/06/21 06:00 Pulse Ox 94 12/06/21 06:00 Weight last 48 hrs Weight 72.121 kg Weight 72.121 kg Data NPU : 12/06/21 08:28 12/06/21 08:28 Micro: Microbiology 12/03/21 21:23 Group A Streptococcus Rapid Screen - Preliminary Throat 12/04/21 15:42 Blood Culture - Preliminary Blood NEGATIVE TO DATE 12/04/21 15:36 Blood Culture - Preliminary Blood NEGATIVE TO DATE 12/04/21 14:50 Chlamydia trachomatis (VIRI) - Final Urine Random Neisseria gonorrhoeae (VIRI) - Final Microbiology 12/03/21 21:23 Throat Group A Streptococcus Rapid Screen - Preliminary 12/04/21 15:42 Blood Blood Culture - Preliminary NEGATIVE TO DATE 12/04/21 15:36 Blood Blood Culture - Preliminary NEGATIVE TO DATE 12/04/21 14:50 Urine Random Chlamydia trachomatis (VIRI) - Final 12/04/21 14:50 Urine Random Neisseria gonorrhoeae (VIRI) - Final A&P Assessment and plan (1) Heroin abuse: Status: Acute (2) Methamphetamine abuse: Status: Acute (3) Cannabis abuse: Status: Acute (4) Suicidal ideation: Status: Acute (5) Anxiety: Status: Acute (6) Major depressive disorder: Status: Acute Plan This is a 21-year-old male with long-term polysubstance abuse who says he is tired of that lifestyle and would rather kill himself. He is wanting rehab treatment and wants to get off of the drugs. Plan: 1. Continue current medication. Celexa 40 mg and Suboxone 4-1 mg 3 times a day. 2. Continue every 15 minute checks for safety. 3. Encourage individual, group and milieu therapies. 4. Encourage sober living treatment after discharge at the highest level of care to which he is willing to commit. 5. We will monitor for safety for himself in the community prior to discharge. Involuntary Hold Information 96 Hour Hold: 96 Hour Involuntary Admission: No Attestations U Medical Necessity Statement*: Inpatient hospitalization is medically necessary and the clinically appropriate intervention at this time. We will initiate medications and make changes as indicated. Coding Level of Care Code Acute Retail Stock Clerk for Andrés Schuster Diagnoses Heroin abuse F11.10 Methamphetamine abuse F15.10 Cannabis abuse F12.10 Suicidal ideation R45.851 Anxiety F41.9 Major depressive disorder F32.9
[2021-12-06 15:38] LABS: Lyme AB Screen <0.90 index
[2021-12-06] MEDS: OLANZapine 5 mg ODT PO (18:52)
[2021-12-06] MEDS: nicotine 2 mg Gum BUCCAL (19:45)
--- NOTE | 2021-12-06 19:56 | PC.NURSE ---
PT IS UP THIS EVENING, MORE INTERACTIVE. REPORTS FEELING BETTER PHYSICALLY THIS EVENING. ENDORSES CONTINUED DEPRESSION AND ANXIETY. REPORTS CONTINUED SI D/T LEGAL ISSUES AND JUST NOT WANTING TO DEAL WITH THEM ANYMORE. NO INTENT AT THIS TIME, CONTRACTS FOR SAFETY WITH STAFF. STAFF WILL CONTINUE TO MONITOR.
[2021-12-06 20:28] VITALS: BP 121/64; PULSE 78; RESP 17; TEMP 37; O2SAT 96
[2021-12-07 08:53] LABS: Basophils # 0.1 10^3/uL (0.0-0.1); Basophils % 0.6 %; Eosinophils # 0.6 10^3/uL (0.0-0.8); Eosinophils % 7.1 %; Hematocrit 41.3 % (42.0-52.0); Hemoglobin 14.2 g/dL (11.7-16.6); Lymphocytes # 2.3 10^3/uL (0.8-4.8); Lymphocytes % 28.4 %; Mean Corpuscular HGB Conc 34.4 g/dL (30.0-36.0); Mean Corpuscular Hemoglobin 29.5 pg (28.0-34.0); Mean Corpuscular Volume 85.7 fl (80-94); Mean Platelet Volume 9.3 fL (7.4-10.4); Monocytes # 1.6 10^3/uL (0.2-0.9); Monocytes % 20.1 %; Neutrophils # 3.49 10^3/uL (1.8-7.7); Neutrophils % 43.3 %; Nucleated Red Blood Cells % 0 %; Platelet Count 367 10^3/cmm (130-400); Red Blood Count 4.82 10^6/uL (4.1-5.3); Red Cell Distribution Width 12.6 % (12.1-15.1); White Blood Count 8.1 10^3/uL (4.0-10.0)
[2021-12-07 09:16] LABS: Alanine Aminotransferase 81 U/L (0-41); Albumin Level 3.6 g/dL (3.5-5.2); Alkaline Phosphatase 69 IU/L (40-130); Anion Gap 11.3 (5-19); Aspartate Amino Transferase 43 U/L (0-40); Blood Urea Nitrogen 13 mg/dL (6-20); Calcium 8.4 mg/dL (8.5-10.5); Carbon Dioxide 30 mmol/L (22-29); Chloride 99 mmol/L (98-107); Globulin 2.7 g/dL (1.3-4.6); Glomerular Filtration Rate 168.5 mL/min (90-130); Glucose 98 mg/dL (65-115); Osmolality Calculated 282 mOsm/kg (285-295); Potassium 4.3 mmol/L (3.5-5.1); Sodium 136 mmol/L (136-145); Total Bilirubin 0.2 mg/dL (0.15-1.2); Total Protein 6.3 g/dL (6.6-8.7)
[2021-12-07] MEDS: buprenorphine-naloxone 4-1 mg Film 1 EACH SUBLINGUAL ×3 (10:01→20:19)
[2021-12-07] MEDS: citalopram 20 mg Tablet 40 MG PO (10:08)
--- NOTE | 2021-12-07 12:47 | W.PM.NPUPNS ---
Subjective NPU Subjective: He says that the Celexa does not seem to be doing anything. It seems like it is making his nightmares worse. He is still having episodic suicidal ideation. He said he took Prozac previously and it worked better. He would like to change that. He still feels physically ill. He agreed to take scheduled ibuprofen 3 times a day. Mental Status Exam MSE Comments: This is a 21-year-old single male who appears approximately his stated age and is in no acute distress. He is pleasant and cooperative with the evaluation. He is fairly well groomed and in hospital scrubs. psychomotor activity is normal. Speech is at a regular rate and rhythm, normal volume, good articulation, not pressured. Alert, oriented X3 Attention and concentration appears to be normal. Memory is intact Mood is depressed. Affect is moderately dysphoric. Thought process is logical and goal-directed. Thought content: Denies auditory and visual hallucinations. No delusions or paranoia are noted. Episodic suicidal ideation. He denies homicidal ideation. Fund of knowledge is average. Insight and judgment appear to be poor. Impulse control is poor. Cognition: Patient Appearance: Appropriate Patient Orientation (long list): Person, Place, Time, Name, Birthday, Month and Year Comprehension Ability: No Impairment Hallucination Type: None Delusion Description: Not Present Thought Process: Appropriate Affect: Affect Description: Calm Behavior: Patient Behavior: Appropriate Speech Pattern: Appropriate and Clear Vitals/I&O/Wt Last Vital Signs Temp 98.6 F 12/06/21 20:28 Pulse 78 12/06/21 20:28 Resp 17 12/06/21 20:28 BP 121/64 12/06/21 20:28 Pulse Ox 96 12/06/21 20:28 Data NPU : 12/07/21 08:40 12/07/21 08:40 Micro: Microbiology 12/03/21 21:23 Group A Streptococcus Rapid Screen - Final Throat 12/05/21 16:00 Throat Culture - Final Throat 12/06/21 08:53 Parasite Antigen Panel - Final Stool - Stool Aspirate Microbiology 12/03/21 21:23 Throat Group A Streptococcus Rapid Screen - Final 12/05/21 16:00 Throat Throat Culture - Final 12/06/21 08:53 Stool - Stool Aspirate Parasite Antigen Panel - Final A&P Assessment and plan (1) Heroin abuse: Status: Acute (2) Methamphetamine abuse: Status: Acute (3) Cannabis abuse: Status: Acute (4) Suicidal ideation: Status: Acute (5) Anxiety: Status: Acute (6) Major depressive disorder: Status: Acute Plan This is a 21-year-old male with long-term polysubstance abuse who says he is tired of that lifestyle and would rather kill himself. He is wanting rehab treatment and wants to get off of the drugs. Plan: 1. Continue current medication. Suboxone 4-1 mg 3 times a day. Discontinue Celexa and start fluoxetine 40 mg daily 2. Continue every 15 minute checks for safety. 3. Encourage individual, group and milieu therapies. 4. Encourage sober living treatment after discharge at the highest level of care to which he is willing to commit. 5. We will monitor for safety for himself in the community prior to discharge. Involuntary Hold Information 96 Hour Hold: 96 Hour Involuntary Admission: No Attestations NPU Medical Necessity Statement*: Inpatient hospitalization is medically necessary and the clinically appropriate intervention at this time. We will initiate medications and make changes as indicated. Coding Level of Care Code Acute Crane Service Technician for Andrés Fwkathia Diagnoses Heroin abuse F11.10 Methamphetamine abuse F15.10 Cannabis abuse F12.10 Suicidal ideation R45.851 Anxiety F41.9 Major depressive disorder F32.9
[2021-12-07 14:00] VITALS: BP 96/58; PULSE 53; RESP 13; TEMP 36.8; O2SAT 95
[2021-12-07] MEDS: ibuprofen 800 mg tablet PO ×2 (14:26→20:19)
[2021-12-07] MEDS: OLANZapine 5 mg ODT PO (17:24)
--- NOTE | 2021-12-07 18:46 | PC.NURSE ---
1724 Pt stated he was having anxiety, nurse administered 5mg Zyprexa Zydis.
[2021-12-07 20:23] VITALS: BP 127/49; PULSE 69; RESP 16; TEMP 36.7; O2SAT 96
[2021-12-07 21:18] LABS: HEP C RNA Viral Load Quant 421000 IU/mL (NOT DETECTED); HEP C RNA Viral Load Quant 5.62 Log IU/mL (NOT DETECTED)
--- NOTE | 2021-12-08 05:35 | PC.NURSE ---
PT REMAINED WITHDRAW TO ROOM IN EVENING. AFFECT BLAND BUT IMPROVED SLIGHTLY. REPORTED SOME IMPROVEMENT WITH DEPRESSION, DENIED SI AND HI BOTH THIS EVENING. DENIES AVH. ANSWERS QUESTIONS APPROPRIATELY. RESTING IN BED WITH EYES CLOSED THROUGHOUT NIGHT.
[2021-12-08 06:00] VITALS: BP 92/48; PULSE 78; RESP 17; TEMP 36.7; O2SAT 98
[2021-12-08] MEDS: buprenorphine-naloxone 4-1 mg Film 1 EACH SUBLINGUAL ×3 (07:46→20:48)
[2021-12-08] MEDS: ibuprofen 800 mg tablet PO ×2 (07:46→14:47)
[2021-12-08] MEDS: nicotine 2 mg Gum BUCCAL (07:46)
[2021-12-08] MEDS: fluoxetine 20 mg Capsule 40 MG PO (07:47)
--- NOTE | 2021-12-08 07:53 | P.NPUPN_ITS ---
Subjective NPU Subjective: He feels physically somewhat better. The ibuprofen 800 mg 3 times a day seems to be helping. He still has a lot of nasal drainage and coughing. He still has hopelessness and suicidal ideation. He has legal problems and addiction issues and feels like he cannot continue like this. He does want residential treatment and we are still looking for that. Mental Status Exam MSE Comments: This is a 21-year-old single male who appears approximately his stated age and is in no acute distress. He is pleasant and cooperative with the evaluation. He is fairly well groomed and in hospital scrubs. psychomotor activity is normal. Speech is at a regular rate and rhythm, normal volume, good articulation, not pressured. Alert, oriented X3 Attention and concentration appears to be normal. Memory is intact Mood is depressed. Affect is mildly dysphoric. Thought process is logical and goal-directed. Thought content: Denies auditory and visual hallucinations. No delusions or paranoia are noted. Episodic suicidal ideation. He denies homicidal ideation. Fund of knowledge is average. Insight and judgment appear to be poor. Impulse control is poor. Cognition: Patient Appearance: Appropriate Patient Orientation (long list): Person, Place, Time, Name, Birthday, Month and Year Comprehension Ability: No Impairment Hallucination Type: None Delusion Description: Not Present Thought Process: Appropriate Affect: Affect Description: Calm Behavior: Patient Behavior: Appropriate Speech Pattern: Appropriate Vitals/I&O/Wt Last Vital Signs Temp 98.0 F 12/08/21 06:00 Pulse 78 12/08/21 06:00 Resp 17 12/08/21 06:00 BP 92/48 12/08/21 06:00 Pulse Ox 98 12/08/21 06:00 Data NPU : 12/07/21 08:40 12/07/21 08:40 Micro: Microbiology 12/03/21 21:23 Group A Streptococcus Rapid Screen - Final Throat 12/05/21 16:00 Throat Culture - Final Throat Microbiology 12/03/21 21:23 Throat Group A Streptococcus Rapid Screen - Final 12/05/21 16:00 Throat Throat Culture - Final A&P Assessment and plan (1) Heroin abuse: Status: Acute (2) Methamphetamine abuse: Status: Acute (3) Cannabis abuse: Status: Acute (4) Suicidal ideation: Status: Acute (5) Anxiety: Status: Acute (6) Major depressive disorder: Status: Acute Plan This is a 21-year-old male with long-term polysubstance abuse who says he is tired of that lifestyle and would rather kill himself. He is wanting rehab treatment and wants to get off of the drugs. Plan: 1. Continue current medication. Suboxone 4-1 mg 3 times a day. Discontinue Celexa and start fluoxetine 40 mg daily 2. Continue every 15 minute checks for safety. 3. Encourage individual, group and milieu therapies. 4. Encourage sober living treatment after discharge at the highest level of care to which he is willing to commit. 5. We will monitor for safety for himself in the community prior to discharge. 6. Looking for a treatment program. Involuntary Hold Information 96 Hour Hold: 96 Hour Involuntary Admission: No Attestations U Medical Necessity Statement*: Inpatient hospitalization is medically necessary and the clinically appropriate intervention at this time. We will initiate medications and make changes as indicated. Coding Level of Care Code Acute Election Watcher for Andrés Schuster Diagnoses Heroin abuse F11.10 Methamphetamine abuse F15.10 Cannabis abuse F12.10 Suicidal ideation R45.851 Anxiety F41.9 Major depressive disorder F32.9
[2021-12-08] MEDS: OLANZapine 5 mg ODT PO (08:27)
--- NOTE | 2021-12-08 10:22 | PC.NURSE ---
STATES HE IS FEELING BETTER AND TRYING TO FIND A REHAB TO GO TO. VOICES ANXIETY AT THIS TIME. DENIES HI AND AVH AT THIS TIME. DOES ENDORSE SI WITH NO PLAN. STATES I THINK ABOUT OVERDOSING ON HEROIN WHEN I'M OUTTA HERE. SUPPORT VOICED BY NURSE AND ENCOURGED PT. CONTRACTED FOR SAFETY. STATES IF THE THOUGHTS GET WORSE HE WILL LET THIS RN OR STAFF KNOW. DENIES PAIN. AFTER ASSESSMENT RECEIVED ZYDIS FOR ANXIETY AND WENT BACK TO PHONE TO MAKE CALLS FOR REHAB PLACEMENT
[2021-12-08 14:00] VITALS: BP 119/61; PULSE 56; RESP 20; TEMP 36.3; O2SAT 98
[2021-12-08 20:54] VITALS: BP 96/57; PULSE 63; RESP 16; TEMP 36.5; O2SAT 97
[2021-12-09 06:00] VITALS: BP 110/59; PULSE 103; RESP 18; TEMP 36.7; O2SAT 96
[2021-12-09] MEDS: nicotine 2 mg Gum BUCCAL ×4 (08:25→17:33)
[2021-12-09] MEDS: buprenorphine-naloxone 4-1 mg Film 1 EACH SUBLINGUAL ×3 (08:25→20:07)
[2021-12-09] MEDS: fluoxetine 20 mg Capsule 40 MG PO (08:25)
[2021-12-09] MEDS: ibuprofen 800 mg tablet PO ×2 (08:25→14:06)
[2021-12-09] MEDS: OLANZapine 5 mg ODT PO (09:55)
--- NOTE | 2021-12-09 11:40 | PC.NURSE ---
PT REQUEST HIS MECHANICAL SOFT DIET BE CHANGED. STATES HIS TOOTH AND TONGUE ARE NO LONGER BOTHERING HIM AND DEMANDS HE HAS A REGULAR DIET LIKE EVERYONE ELSE. NEW ORDER RECEIVED TO DC MECHANICAL SOFT DIET AND START REGULAR DIET. PT UPDATED WITH NEW ORDERS AND CONTENT. REQUEST HE GET A DESSERT LIKE EVERYONE ELSE. CALLED DIETARY AND THEY ARE BRINGING UP A DESSERT FOR PT.
[2021-12-09 14:00] VITALS: BP 161/78; PULSE 70; RESP 20; TEMP 36.6; O2SAT 97
[2021-12-09] MEDS: haloperidol 5 mg Tablet PO (14:09)
--- NOTE | 2021-12-09 19:45 | W.PM.NPUPNS ---
Subjective NPU Subjective: Patient presented today reporting that things are doing a little better. He had a chance to reach out to someone who was able to identify for him the process that would allow him to possibly get his warrant released so he go to treatment. He reports to having talk to them and thought about it more he does feel like he can faced this obstacle. He reports that the medications are working okay and that he has a friend is going to take him to see his mom before he goes to the retirement. He reported eating and sleeping better and denies any other concerns. Mental Status Exam MSE Comments: This is nourished well-developed white male with adequate dress, grooming and eye contact. No abnormal movements except for mild psychomotor retardation. Cooperative with exam in no acute distress. Speech was slightly decreased rate and volume. Mood described as getting better, affect slightly subdued. Thought process organized, thought content: patient denies suicidal or homicidal ideation, there were no delusions reported or noted, she denied any auditory or visual hallucinations. Attention and concentration were intact and memory appeared reliable but none were formally tested. He?s alert and oriented times three. Insight and judgment appeared fair and impulse control appeared fair Vitals/I&O/Wt Last Vital Signs Temp 98 F 12/09/21 14:00 Pulse 70 12/09/21 14:00 Resp 20 H 12/09/21 14:00 BP 161/78 12/09/21 14:00 Pulse Ox 97 12/09/21 14:00 Data NPU : 12/07/21 08:40 12/07/21 08:40 Micro: Microbiology 12/04/21 15:42 Blood Culture - Final Blood NO GROWTH AFTER 5 DAYS 12/04/21 15:36 Blood Culture - Final Blood NO GROWTH AFTER 5 DAYS Microbiology 12/04/21 15:42 Blood Blood Culture - Final NO GROWTH AFTER 5 DAYS 12/04/21 15:36 Blood Blood Culture - Final NO GROWTH AFTER 5 DAYS A&P Assessment and plan (1) Major depressive disorder: Status: Acute (2) Anxiety: Status: Acute (3) Suicidal ideation: Status: Acute (4) Cannabis abuse: Status: Acute (5) Methamphetamine abuse: Status: Acute (6) Heroin abuse: Status: Acute Plan This is a 21-year-old male with long-term polysubstance abuse who says he is tired of that lifestyle and would rather kill himself.? He is wanting rehab treatment and wants to get off of the drugs. Plan: 1.? Continue current medication. ? Continued Suboxone 4-1 mg 3 times a day.? Discontinue Celexa and started fluoxetine 40 mg daily 2.? Continue every 15 minute checks for safety. 3.? Encourage individual, group and milieu therapies. 4.? Encourage sober living treatment after discharge at the highest level of care to which he is willing to commit. 5.? We will consider discharge tomorrow if arrangements can be orchestrated. Involuntary Hold Information 96 Hour Hold: 96 Hour Involuntary Admission: No Attestations NPU Medical Necessity Statement*: Inpatient hospitalization is medically necessary and the clinically appropriate intervention at this time.? We will initiate medications and make changes as indicated. Likely length of stay 1 to 3 days. Coding Level of Care Code Acute Building Illuminating Engineer for Andrés Schuster Diagnoses Major depressive disorder F32.9 Anxiety F41.9 Suicidal ideation R45.851 Cannabis abuse F12.10 Methamphetamine abuse F15.10 Heroin abuse F11.10
[2021-12-09 21:25] VITALS: BP 126/69; PULSE 68; RESP 18; TEMP 36.8; O2SAT 97
[2021-12-09 21:38] LABS: E. Chaffeensis AB IGG <1:64; E. Chaffeensis AB IGM <1:20
[2021-12-10 06:00] VITALS: BP 123/72; PULSE 72; RESP 19; TEMP 36.6; O2SAT 96
[2021-12-10] MEDS: ibuprofen 800 mg tablet PO (09:15)
[2021-12-10] MEDS: nicotine 2 mg Gum BUCCAL (09:15)
[2021-12-10] MEDS: fluoxetine 20 mg Capsule 40 MG PO (09:15)
[2021-12-10] MEDS: buprenorphine-naloxone 4-1 mg Film 1 EACH SUBLINGUAL (09:16)
--- NOTE | 2021-12-10 12:57 | P.NPUDS_ITS ---
Diagnoses at Discharge Discharge Diagnosis (1) Major depressive disorder: Status: Acute (2) Anxiety: Status: Acute (3) Suicidal ideation: Status: Resolved (4) Cannabis abuse: Status: Acute (5) Methamphetamine abuse: Status: Acute (6) Heroin abuse: Status: Acute Reason for Visit Reason for Visit: Brief History: History of Present Illness Philip Noble is a 21 year old male who was admitted to an outside emergency department with the following report: The patient is a 21-year-old male who presents to the Emergency Department today due to suicidal ideation.? States that has been going on for the last few days.? States that he would overdose on heroin.? He uses heroin intermittently.? He has never tried to overdose before.? He has been using increasingly high doses of drugs.? He was in the emergency room last evening for methamphetamine use.? Denies any other symptoms.? Otherwise he is normal state of health. Patient is a 21-year-old male who presents to the emergency department for virtual evaluation.? Patient reports a chief complaint of I am having suicidal thoughts .? Patient reports suicidal ideation with a plan, patient reports his plan is overdose on heroin .? Patient declines any current depression, anxiety, manic or psychosis symptoms and states I want to detox. ? Patient was recently discharged from the inpatient behavioral health at [facility] from November 18 to November 23.? Patient reports methamphetamine and heroin use, patient disclosed ethanol use to the medical team but declined alcohol use to this insurance writer.? Patient reports he is currently homeless and does not have access to weapons, he does state that he feels he cannot be safe outside the hospital.? Patient reports he has no social support.? Patient states he receives outpatient services from [facility], however, patient then declined that he receives services from [facility].? Patient requested to be admitted to inpatient behavioral health for detox and suicidal thoughts. ? Patient presents alert and oriented x4, calm, cooperative and answers questions appropriately. She was recently admitted to a different hospital for about 5 days.? He said that he did okay for about 1 week and then stopped taking the medications and started using heroin again.? He has been homeless for about 3 months.? He has not had a job for quite some time.? He said that they did not talk to him at the previous hospital about rehab.? He said it has been sometime that he has been to rehab previously.? He would like to go again.? He wants to get off of the heroin and methamphetamine.? He says that he is tired of this lifestyle and strongly considered suicide.? He said he would rather commit suicide than continue with this homeless drug abusing lifestyle.? He has 2 somewhat recent prescriptions for Suboxone.? He says he receives that at [facility].? He says that he takes Celexa 40 mg and that has been helpful for his depression and anxiety.? He says that his anxiety started when he was a teenager.? He feels that it is more prominent than his depression.? He says that his family became homeless when he was 15 years old.? He said that his father came home from [facility] and started using methamphetamine in the house.? The landlord kicked them out.? He said that he was in state custody up until the time he was of age.? He said that he has had Medicaid ever since that time.? He has been using drugs fairly consistently since that time.? He has not really had any significant employment during that time.? He says that that is because of his addictions. Hospital Course Hospital Course He very slowly acclimated to the individual, group and milieu therapies provided . He worked with the social work team diligently to find a clear option for sober living. He was started on Celexa but had limited improvement so was switched to Prozac prior to discharge and was treated with Suboxone during his stay. Ultimately SAG occurred when charges were identified. So he worked with the social work team to get the court as much information about what he had been doing in the hospital and a plan for the sober living treatment. The plan was for him to ultimately turn himself in to the court house with a possible short nursing home term versus release to the sober living facility but he was prepared to face the situation. He had marked improvement during the hospitalization and was able to contract for safety outside the hospital prior to discharge. At the outside hospital, patient had routine laboratory studies which were within normal limits except for few outliers. Additionally there was a general medical evaluation which was also within normal limits and revealed no new acute processes. Discharge Summary: At the time of discharge, he denied psychosis or lethality. Mood and anxiety were well managed. Patient endorsed a plan to avoid all drugs of abuse and follow-up with the aftercare recommendations of the treatment team. Patient was evaluated and deemed to be absent credible lethality, and had achieved the maximum benefit from an inpatient hospitalization, so was discharged. Involuntary Hold Information 96 Hour Hold: 96 Hour Involuntary Admission: No Mental Status Exam MSE Comments: This is nourished well-developed white male with adequate dress, grooming and eye contact. No abnormal movements except for mild psychomotor retardation.? Cooperative with exam in no acute distress. Speech was slightly decreased rate and volume. Mood described as better, affect slightly subdued. Thought process organized, thought content: patient denies suicidal or homicidal ideation, there were no delusions reported or noted, he denied any auditory or visual hallucinations. Attention and concentration were intact and memory appeared reliable but none were formally tested. He?s alert and oriented times three. Insight and judgment appeared fair and impulse control appeared fair Discharge Data Studies Completed and Pending: Completed Studies During Hospitalization Category Date Time Status CXRP [XR chest 1V portable 13171] R outine Exams 12/04/21 14:52 Completed Pending at discharge Category Date Time Status Tick Panel Routin e Lab 12/04/21 14:49 Results Radiology Impressions Chest X-Ray 12/04/21 14:52 IMPRESSION: No acute findings. Laboratory Results WBC 8.1 10^3/uL (4.0- 10.0) 12/07/21 08:40 RBC 4.82 10^6/uL (4.1 -5.3) 12/07/21 08:40 Hgb 14.2 g/dL (11.7-1 6.6) 12/07/21 08:40 Hct 41.3 % (42.0-52.0 ) L 12/07/21 08:40 MCV 85.7 fl (80-94) 12/07/21 08:40 MCH 29.5 pg (28.0-34. 0) 12/07/21 08:40 MCHC 34.4 g/dL (30.0-3 6.0) 12/07/21 08:40 RDW 12.6 % (12.1-15.1 ) 12/07/21 08:40 Plt Count 367 10^3/cmm (130 -400) 12/07/21 08:40 MPV 9.3 fL (7.4-10.4) 12/07/21 08:40 Neut % (Auto) 43.3 % 12/07/21 08:40 Lymph % (Auto) 28.4 % 12/07/21 08:40 [place] % (Auto) 20.1 % 12/07/21 08:40 Eos % (Auto) 7.1 % 12/07/21 08:40 Baso % (Auto) 0.6 % 12/07/21 08:40 Neut # (Auto) 3.49 10^3/uL (1.8 -7.7) 12/07/21 08:40 Lymph # (Auto) 2.3 10^3/uL (0.8- 4.8) 12/07/21 08:40 [place] # (Auto) 1.6 10^3/uL (0.2- 0.9) H 12/07/21 08:40 Eos # (Auto) 0.6 10^3/uL (0.0- 0.8) 12/07/21 08:40 Baso # (Auto) 0.1 10^3/uL (0.0- 0.1) 12/07/21 08:40 Nucleated RBC % (a uto) 0 % 12/07/21 08:40 Nucleated RBCs # 0.0 /100WBC 12/07/21 08:40 Sodium 136 mmol/L (136-1 45) 12/07/21 08:40 Potassium 4.3 mmol/L (3.5-5 .1) 12/07/21 08:40 Chloride 99 mmol/L (98-107 ) 12/07/21 08:40 Carbon Dioxide 30 mmol/L (22-29) H 12/07/21 08:40 Anion Gap 11.3 (5-19) 12/07/21 08:40 BUN 13 mg/dL (6-20) 12/07/21 08:40 Creatinine 0.6 mg/dL (0.7-1. 2) L 12/07/21 08:40 GFR Calculation 168.5 mL/min (90- 130) H 12/07/21 08:40 Glucose 98 mg/dL (65-115) 12/07/21 08:40 Calculated Osmolal ity 282 mOsm/kg (285- 295) L 12/07/21 08:40 Calcium 8.4 mg/dL (8.5-10 .5) L 12/07/21 08:40 Total Bilirubin 0.2 mg/dL (0.15-1 .2) 12/07/21 08:40 AST 43 U/L (0-40) H 12/07/21 08:40 ALT 81 U/L (0-41) H 12/07/21 08:40 Alkaline Phosphata se 69 IU/L (40-130) 12/07/21 08:40 C-Reactive Protein 33.4 mg/L (0.0-4. 9) H 12/04/21 09:27 Total Protein 6.3 g/dL (6.6-8.7 ) L 12/07/21 08:40 Albumin 3.6 g/dL (3.5-5.2 ) 12/07/21 08:40 Globulin 2.7 g/dL (1.3-4.6 ) 12/07/21 08:40 Lyme Ab (Western B lot) <0.90 index 12/04/21 14:49 E. chaffeensis IgG Ab <1:64 12/04/21 14:49 E. chaffeensis IgM Ab <1:20 12/04/21 14:49 E. chaffeensis Int erp See note 12/04/21 14:49 E. chaffeensis Com ment Not Reportable 12/04/21 14:49 Hepatitis A IgM Ab Non-reactive (No nreactive) 12/04/21 14:49 Hep Bs Antigen Non-reactive (No nreactive) 12/04/21 14:49 Hep B Core IgM Ab Non-reactive (No nreactive) 12/04/21 14:49 Hepatitis C Antibo dy Reactive (Nonrea ctive) H 12/04/21 14:49 HCV RNA (PCR) IUs/ ml 5.62 Log IU/mL (N OT DETECTED) H 12/04/21 18:45 HCV RNA (PCR) IU l og10 [id number] IU/mL (NOT DETECTED) H 12/04/21 18:45 Monoscreen Negative (Negati ve) 12/04/21 09:27 HIV 1&2 Ab & HIV 1 Ag Non-reactive (No n-Reactiv) 12/04/21 14:49 HIV 1&2 Antibody Non-reactive (No n-Reactiv) 12/04/21 14:49 SARS-CoV-2 Ag (Rap id) Negative (Negati ve) 12/05/21 07:00 Group A Strep Rapi d Negative (Negati ve) 12/03/21 21:23 Vitals: Last Vital Signs Temp 97.9 F 12/10/21 06:00 Pulse 72 12/10/21 06:00 Resp 19 H 12/10/21 06:00 BP 123/72 12/10/21 06:00 Pulse Ox 96 12/10/21 06:00 Discharge Plan Discharge Patient Disposition: Home Condition: Stable Prescriptions: New fluoxetine 20 mg Capsule 40 mg PO DAILY 30 Days Qty: 60 1RF buprenorphine-naloxone 4-1 mg Film 1 ea sublingual TID Qty: 0 0RF Discharge Orders: Discharge Order (Routine); Ordered 12/10/21 Ordered By: Frankie Mittal Referrals: [facility] [Other] (You have been discharged from services and you will need to walk in Monday through Monday 8am to 4pm. Bring photo ID, mail with home address, Social Security card or number, list of medications, and Insurance Card.) [facility] [Other] (Walk in from Monday, , and Monday at 7:30 am and Monday 11:30 am. Can go to [facility] if needed.) Discharge Diet: Regular Discharge Activity: Resume usual activity Patient Instructions: Opioid Safety Discharge Attestations NPU Time Spent in Discharge Care*: less than 30 min Specific Discharge Activities: Specific discharge activities: educating patient, discussing with case liner/social workers/dc planners, documentin g/other paperwork and evaluating patient/reviewing data Coding Level of Care Code Acute Chg FW DC note Diagnoses Major depressive disorder F32.9 Anxiety F41.9 Suicidal ideation R45.851 Cannabis abuse F12.10 Methamphetamine abuse F15.10 Heroin abuse F11.10
[2021-12-10 13:20] VITALS: BP 123/72; PULSE 72; RESP 19; TEMP 36.6; O2SAT 96
[2021-12-12 20:57] LABS: RMSF IGG NOT DETECTED; RMSF IGM NOT DETECTED
== END 2021-12-10 13:45 | disposition home or self-care (01) | DRG 897 ==
PROVIDERS: Internal Medicine; Admitting Provider Psychiatry & Neurology Psychiatry; Visit Provider Psychiatry & Neurology Psychiatry
DX: F11.10 Opioid abuse, uncomplicated (principal); R45.851 Suicidal ideations; F15.10 Other stimulant abuse, uncomplicated; F12.10 Cannabis abuse, uncomplicated; F41.9 Anxiety disorder, unspecified; F32.9 Major depressive disorder, single episode, unspecified; B19.20 Unspecified viral hepatitis C without hepatic coma; F17.200 Nicotine dependence, unspecified, uncomplicated; Z59.00 Homelessness unspecified; R21 Rash and other nonspecific skin eruption; J02.9 Acute pharyngitis, unspecified
CPT/HCPCS: 36415; 71045; 80048; 80053; 80074; 85025; 86140; 86308; 86618; 86666; 86757; 87040; 87070; 87081; 87426; 87491; 87506; 87522; 87591; 87806; 87880; 96372; 97150; 97165; J0573; J1200; Q0162